=== PATIENT | female | born 1940 | race Caucasian/White ===

== ENCOUNTER → 2024-02-06 | Outpatient (CLI) | payer OTHER ==
[2024-02-08 12:32] LABS: Stool Occult Bld Immuno 1 Positive (NEGATIVE)
== END | disposition home or self-care (01) ==
LOC: LAB 09:20 → LAB SHORT 09:20
PROVIDERS: Nurse Practitioner Family
DX: D50.9 Iron deficiency anemia, unspecified (principal)
CPT/HCPCS: G0328

== ENCOUNTER 2024-08-02 08:21 | Day surgery (SDC) | payer OTHER ==
[~2024-08-02] VITALS: Ht 154.9 cm; Wt 75.1 kg
[2024-08-02] VITALS (22 sets, daily range): BP systolic 84–173; BP diastolic 33–95
[~2024-08-02 08:21] MED LIST: Benzocaine Oral Spray 0.5ML UD ONE; Lactated Ringer's 1,000 ML IV SCH
--- NOTE | 2024-08-02 08:52 | NUR ---
Ambulatory in Day SurgeryPre-Op teaching done. Pt verbalizes understanding. History, Chart, Medications and Allergies reviewed before start of procedure.Patient confirms NPO status and agrees with scheduled surgery. Patient States Post-Procedure ride home has been arranged.
[2024-08-02] MEDS ORDERED: propofoL 20 ML IV ONE (09:00)
[2024-08-02] MEDS ORDERED: Midazolam HCl 1MG / ML 2ML Vial ONE (09:01)
--- NOTE | 2024-08-02 09:11 | NUR ---
08/02/24 09[place] CONFIRMED AND REVIEWED H&P, MEDCICATIONS, ALLERGIES, MEDICAL HISTORY, RESPIRATORY HISTORY, VITAL SIGNS, 3-LEAD EKG, CONSENTS, AND PHYSICIAN ORDERS. PATIENT CONFIRMS NPO STATUS AND AGREES WITH SCHEDULED PROCEDURE. MONITOR INTACT WITH CONTINUOUS PULSE OXIMETRY, CAPNOGRAPHY, 3-LEAD EKG, INTERMITTENT BP. SUPPLEMENTAL O2 TO BE TITRATED THROUGHOUT PROCEDURE TO MAINTAIN O2 SATURATION ABOVE 90%. PATIENT DETERMINED TO BE ASA APPROPRIATE FOR PROPOFOL SEDATION PRIOR TO START OF PROCEDURE BY DR. VITAL.
--- NOTE | 2024-08-02 10:17 | NUR ---
Discharge instructions reviewed with patient. Patient verbalizes understanding. Copy given to patient to take home. Patient States Post-Procedure ride home has been arranged. Discharged via wheelchair to private car for ride home.
== END 2024-08-02 10:18 | disposition home or self-care (01) ==
LOC: ORSCMMR 08:21 → ORD 09:00 → ORSCMMR 09:00
PROVIDERS: Internal Medicine Gastroenterology
PROC: 0DB98ZX Excision of Duodenum, Via Natural or Artificial Opening Endoscopic, Diagnostic (ICD-10-PCS; principal; 2024-08-02 09:00)
PROC: 0DBM8ZX Excision of Descending Colon, Via Natural or Artificial Opening Endoscopic, Diagnostic (ICD-10-PCS; principal; 2024-08-02 09:00)
PROC: 0DB68ZX Excision of Stomach, Via Natural or Artificial Opening Endoscopic, Diagnostic (ICD-10-PCS; principal; 2024-08-02 09:00)
PROC: 0DBL8ZX Excision of Transverse Colon, Via Natural or Artificial Opening Endoscopic, Diagnostic (ICD-10-PCS; principal; 2024-08-02 09:00)
DX: D50.0 Iron deficiency anemia secondary to blood loss (chronic) (principal); K44.9 Diaphragmatic hernia without obstruction or gangrene; C18.4 Malignant neoplasm of transverse colon; D12.4 Benign neoplasm of descending colon; D12.3 Benign neoplasm of transverse colon; Z86.0101 Personal history of adenomatous and serrated colon polyps
CPT/HCPCS: 88305; 88342; A9270; J2250; J2704; J7120

== ENCOUNTER 2024-09-03 10:33 | Inpatient (IN) | payer OTHER ==
[~2024-09-03] VITALS: Ht 154.9 cm; Wt 77.1 kg
[2024-09-03 13:29] LABS: BASOPHILS ABSOLUTE AUTO 0.09 K/mm3 (0.00-0.23); BASOPHILS PERCENT AUTO 1 % (0-2); EOSINOPHILS ABSOLUTE AUTO 0.67 K/mm3 (0.00-0.68); EOSINOPHILS PERCENT AUTO 5 % (0-6); Hematocrit 30.4 % (33.0-51.0); Hemoglobin 9.4 g/dL (11.5-16.0); IMMATURE GRAN ABSOLUTE AUTO 0.07 K/mm3 (0.00-0.10); IMMATURE GRAN PERCENT AUTO 1 % (0-1); LYMPHOCYTES ABSOLUTE AUTO 2.15 K/mm3 (0.84-5.20); LYMPHOCYTES PERCENT AUTO 16 % (21-46); MONOCYTES ABSOLUTE AUTO 0.79 K/mm3 (0.16-1.47); MONOCYTES PERCENT AUTO 6 % (4-13); Mean Corpuscular HGB 25.3 pg (26.0-34.0); Mean Corpuscular HGB Conc 30.9 g/dL (31.5-36.5); Mean Corpuscular Volume 82 fL (80-100); NEUTROPHILS ABSOLUTE AUTO 9.58 K/mm3 (1.96-9.15); NEUTROPHILS PERCENT AUTO 72 % (41-73); Platelet Count 512 K/mm3 (150-400); RDW Coefficient Variation 16.7 % (11.7-14.2); RDW Standard Deviation 50.1 fL (35.1-46.3); Red Blood Cell Count 3.71 M/mm3 (3.80-5.20); White Blood Cell Count 13.35 K/mm3 (4.00-11.30)
[2024-09-04] VITALS (19 sets, daily range): BP systolic 126–151; BP diastolic 62–87
[2024-09-04] MEDS ORDERED: Lactated Ringer's 1,000 ML IV SCH (06:15)
[2024-09-04] MEDS ORDERED: MetroNIDAZOLE 500MG/NS 100 ml 100 ML IV SCH (06:15)
[2024-09-04] MEDS ORDERED: Acetaminophen 500 MG Tab PO SCH (06:15)
[2024-09-04] MEDS ORDERED: CeFAZolin Sodium 2,000 MG in NS 100 ML IV SCH (06:15)
[2024-09-04] MEDS ORDERED: Heparin Sodium,Porcine 5,000 UNIT/0.5 ML SDV SC SCH (06:20)
[2024-09-04] MEDS ORDERED: FentaNYL Citrate 50 MCG/ML 2 ML Injection ONE (07:05)
[2024-09-04] MEDS ORDERED: propofoL 20 ML IV ONE (07:05)
[2024-09-04] MEDS ORDERED: Rocuronium Bromide 10 MG/ML 5ML Injection IV ONE (07:05)
[2024-09-04] MEDS ORDERED: Lidocaine HCl 2% 20 ML MDV ONE (07:05)
[2024-09-04] MEDS ORDERED: Bupivacaine 0.5% HCl 5 MG/ML 30MLVIAL ONE (07:10)
[2024-09-04] MEDS ORDERED: Ondansetron HCl 2 MG / ML 2ML Vial ONE (07:40)
[2024-09-04] MEDS ORDERED: Dexamethasone Sod Phos 10 MG/ML 1ML VIAL ONE (07:40)
[2024-09-04] MEDS ORDERED: ePHEDrine Sulfate 50 MG/ML 1ML Injection ONE (07:44)
[2024-09-04] MEDS ORDERED: Indocyanine Green 25 MG Vial IV ONE (08:20)
[2024-09-04] MEDS ORDERED: Sugammadex Sodium 200 MG/2ML SDV (100 MG/ML) ONE (10:21)
[2024-09-04] MEDS ORDERED: Acetaminophen 325 MG TABLET PO PRN (11:00)
[2024-09-04] MEDS ORDERED: Ondansetron HCl 2 MG / ML 2ML Vial IV PRN (11:00)
[2024-09-04] MEDS ORDERED: HYDROmorphone HCl/Pf 1MG SYR IV PRN (11:00)
[2024-09-04] MEDS ORDERED: FLU VACC TS2024-25(6MOS UP)/PF 45 MCG/0.5 ML SYRINGE IM SCH (11:00)
[2024-09-04] MEDS ORDERED: OxyCODONE HCL 5 MG TAB PO PRN (11:00)
--- NOTE | 2024-09-04 11:32 | NUR ---
PT ARRIVED TO UNIT FROM PACU S/P R HEMICOLECTOMY PT DENIES PAIN OR NAUSEA AND REPORTS FEELING TIRED. 4 LAP SITES WITH WOUND GLUE LEFTMOST SITE WITH SOME SANGUINOUS DRAINAGE ONTO GOWN. GAUZE AND TEGADERM PLACED ON TOP AND GOWN CHANGED. NO ACTIVE DRAINAGE NOTED. PT ON ROOM AIR, ABLE TO TAKE DEEP BREATHS. WATER AND JELLO AT BEDSIDE. FAMILY IN ROOM. CALL LIGHT PROVIDED.
--- NOTE | 2024-09-04 17:05 | NUR ---
SHIFT SUMMARY POD 1 R JOVANY COLECTOMY PT AMBULATING, DENIES PAIN DURING SHIFT. DENIES NAUSEA. LAP SITES REMAIN UNCHANGED SINCE ARRIVAL. TOLERATING DIET, NO NAUSEA. ABLE TO VOID
[2024-09-04] MEDS ORDERED: Docusate Sodium 100 MG Cap PO SCH (21:00)
[2024-09-05 00:14] VITALS: BP 146/71
[2024-09-05 04:53] VITALS: BP 156/82
[2024-09-05 06:00] LABS: Hematocrit 29.1 % (33.0-51.0); Hemoglobin 9.1 g/dL (11.5-16.0); Mean Corpuscular HGB 25.3 pg (26.0-34.0); Mean Corpuscular HGB Conc 31.3 g/dL (31.5-36.5); Mean Corpuscular Volume 81 fL (80-100); Platelet Count 497 K/mm3 (150-400); RDW Coefficient Variation 16.5 % (11.7-14.2); RDW Standard Deviation 48.7 fL (35.1-46.3); White Blood Cell Count 15.73 K/mm3 (4.00-11.30)
[2024-09-05 06:11] LABS: Calcium, Blood 9.3 mg/dL (8.5-10.1); Magnesium, Blood 2.3 mg/dL (1.6-2.4); Potassium, Blood 4.1 mmol/L (3.5-5.5)
[2024-09-05 07:19] VITALS: BP 144/76
--- NOTE | 2024-09-05 07:24 | NUR ---
SHIFT SUMMARY NOC. PT POD 1 FOR RIGHT JOVANY-COLECTOMY. LAP SITES X4 ARE C/D/I. PT A/OX4 AND CALLS APPROPRIATELY. PT AMBULATES WELL WITH NO WEAKNESS NOTED. PT VOIDING URINE, HAD A LIQUID INCONTINENT BM WELL A 400ML EMESIS THIS AM AROUND 6AM. PT VERBALIZED FEELING BETTER POST EMESIS AND DENIED NAUSEA UNTIL THIS AM. PT MEDICATED FOR MILD PAIN WITH TYLENOL X2. CALL LIGHT IN REACH.
[2024-09-05] MEDS ORDERED: Enoxaparin 30 MG/0.3 ML SYR SC SCH (09:00)
--- NOTE | 2024-09-05 10:40 | NUR ---
Assumed care of patient, moved to room 224. Ambulated independently without difficulty. Vomited 300cc brown liquid, and incontinent of liquid green stool. Reports feeling better, denies nausea or pain at this time. Friend at bedside.
[2024-09-05 14:40] VITALS: BP 172/83
--- NOTE | 2024-09-05 17:17 | NUR ---
SHIFT SUMMARY PT AOX4, COOPERATIVE, ABLE TO MAKE NEEDS KNOWN. PT HAS BEEN IN BED MOST OF SHIFT, IND IN ROOM TO USE BATHROOM. NO COMPLAINTS OF PAIN, DID COMPLAIN OF NAUSEA AND "FEELING FUNNY". SENIOR WEB ARCHITECT INFORMED RN OF THIS AND WHEN THIS RN ASSESSED PT, PT REPORTS TO BE "FEELING GOOD". WILL CONTINUE TO ASSESS THROUGH REMAINDING OF SHIFT. BED IN LOWEST POSITION, CALL LIGHT WITHIN REACH.
[2024-09-05 19:19] VITALS: BP 157/79
--- NOTE | 2024-09-05 23:23 | NUR ---
PT TRANSPOT- PT FAMILY, ROBERT SCHULTZ WILL BE PICKING UP PT AFTER DISCHARGE. PHONE- [phone].
[2024-09-06 03:31] VITALS: BP 148/79
--- NOTE | 2024-09-06 06:01 | NUR ---
PT HAS DENIED NEED TONIGHT. REPORTS TOLERATING PO EXCEPT SOME "ERPY" WHEN QUESTIONED, STATES ERPY TO HER MEANS BELCHING AND BURPING,DENIED NAUSEA.
[2024-09-06 07:06] VITALS: BP 152/90
--- NOTE | 2024-09-06 10:40 | NUR ---
NAUSEA PT REPORTING SOME NAUSEA. MEDICATED PER ORDERS W/ZOFRAN. ENCOURAGED AMBULATION. PT SITTING ON EDGE OF BED, TAKING PEPPERMINT.
--- NOTE | 2024-09-06 13:50 | NUR ---
DR ARTIS IN TO SEE PT. PLAN TO KEEP PT ANOTHER NIGHT AND MONITOR INPUT. NOTIFIED PT'S GRANDDAUGHTER, BUG, PER PT REQUEST.
[2024-09-06 14:49] VITALS: BP 153/83
--- NOTE | 2024-09-06 14:55 | NUR ---
PT REPORTS FEELING "WEAK" VSS. PT AMBULATED IN [place] BRIEF TIME AGO. SITTING UP IN CHAIR NOW. ADVISED PT TO TRY TO TAKE A REST BREAK, PT STATED NEEDS TO MAKE A PHONE CALL. ADVISED PT TO CALL BEFORE AMBULATING SO SAFETY MAY BE INSURED.
--- NOTE | 2024-09-06 17:28 | NUR ---
SUMMARY PT HAS BEEN NAUSEATED OFF AND ON T/O SHIFT. HAD 500 ML DARK GREENISH/BROWN EMESIS THIS AFTERNOON. HAS NOT VOIDED SINCE MIDSHIFT. CONTACTED DR ARTIS AND OBTAINED ORDERS FOR FLUIDS. PT AMBULATED ONCE IN [place] THIS SHIFT, HAS AMBULATED IN ROOM, AND SLEPT OFF AND ON T/O DAY. CALL LIGHT IN REACH.
[2024-09-06] MEDS ORDERED: Lactated Ringer's 1,000 ML IV SCH (17:30)
[2024-09-06] MEDS ORDERED: Lactated Ringer's 1,000 ML IV ONE (17:30)
[2024-09-06 19:33] VITALS: BP 156/93
[2024-09-07 03:55] VITALS: BP 155/82
[2024-09-07 05:25] LABS: BASOPHILS ABSOLUTE AUTO 0.02 K/mm3 (0.00-0.23); BASOPHILS PERCENT AUTO 0 % (0-2); EOSINOPHILS ABSOLUTE AUTO 0.01 K/mm3 (0.00-0.68); EOSINOPHILS PERCENT AUTO 0 % (0-6); Hematocrit 30.1 % (33.0-51.0); Hemoglobin 9.5 g/dL (11.5-16.0); IMMATURE GRAN PERCENT AUTO 1 % (0-1); LYMPHOCYTES PERCENT AUTO 9 % (21-46); MONOCYTES ABSOLUTE AUTO 0.98 K/mm3 (0.16-1.47); MONOCYTES PERCENT AUTO 7 % (4-13); Mean Corpuscular HGB 25.2 pg (26.0-34.0); Mean Corpuscular HGB Conc 31.6 g/dL (31.5-36.5); Mean Corpuscular Volume 80 fL (80-100); Mean Platelet Volume 8.6 fL (9.1-12.4); NEUTROPHILS ABSOLUTE AUTO 11.35 K/mm3 (1.96-9.15); NEUTROPHILS PERCENT AUTO 83 % (41-73); Platelet Count 465 K/mm3 (150-400); RDW Coefficient Variation 15.7 % (11.7-14.2); Red Blood Cell Count 3.77 M/mm3 (3.80-5.20); White Blood Cell Count 13.76 K/mm3 (4.00-11.30)
[2024-09-07 05:59] LABS: Bun/Creatinine Ratio 19.4 (12.0-20.0); Creatinine, Blood 0.77 mg/dL (0.40-1.00); Magnesium, Blood 2.1 mg/dL (1.6-2.4); Potassium, Blood 3.5 mmol/L (3.5-5.5)
--- NOTE | 2024-09-07 07:38 | NUR ---
SUMMARY NO ACUTE CHANGES.
[2024-09-07 07:39] VITALS: BP 133/71
--- NOTE | 2024-09-07 11:31 | NUR ---
THIS PATIENT OFFERED TO WALK WITH PATIENT IN [place].PATIENT DECLINED.RN NOTIFIED.PATIENT EDUCATED AND ENCOURGED TO WALK.
--- NOTE | 2024-09-07 11:34 | NUR ---
THIS ENERGY ATTORNEY OFFERED TO WALK WITH PATIENT.THIS ENERGY ATTORNEY ENCOURAGED PATIENT TO WALK IN HALLS. PATIENT DECLINED.RN NOTIFIED.
[2024-09-07 15:09] VITALS: BP 144/75
--- NOTE | 2024-09-07 16:21 | NUR ---
SUMMARY PATIENT HAVING NAUSEA TODAY, ONLY TOLERATING SIPS OF WATER AND HARD CANDY. ENCOURAGED AMBULATING AND UP IN CHAIR. PATIENT SHOWERED AND LINENS CHANGED. VOIDING IND IN BR. WALKED HALLS THIS AFTERNOON. LAP SITES ARE C.D.I. MILD DISTENTION DENIES PASSING GAS. VSS. IV FLUIDS RUNNING.
[2024-09-07 19:19] VITALS: BP 183/79
[2024-09-07 20:18] VITALS: BP 162/83
[2024-09-08 04:34] VITALS: BP 158/75
--- NOTE | 2024-09-08 07:40 | NUR ---
SHIFT SUMMARY AOX4. POD 4-R JOVANY COLECTOMY. x4 LAP SITES C/D/I, NO DRAINAGE NOTED, OPEN TO AIR. ACTIVE BT. DENIES N/V. REPORTS MIN "PRESSURE/GAS PAIN" IN LLQ ABD, DENIES NEED FOR ANY MEDICATION T/O NIGHT, STATES SHE FEELS "THINGS ARE MOVING & RUMBLING". ABD MOD DISTENDED, TOLERATING CLEAR LIQUID DIET. HAS VOIDED APPROX 2L THIS SHIFT, NO BM. AMBULATED TO RE[facility]OM [facility] x, STATES SHE AMBULATED THE HALLS ALOT YESTERDAY & WAS TOO TIRED TONIGHT. CALL LIGHT IN REACH.
[2024-09-08 09:20] VITALS: BP 144/79
[2024-09-08 14:51] VITALS: BP 148/78
--- NOTE | 2024-09-08 17:24 | NUR ---
SHIFT SUMMARY POD 4 R HEMICOLECTOMY LAP SITES REMAIN CDI. PT DENIES NAUSEA, APPETITE INCREASING. AMBULATING FREQUENTLY IN HALLS. FEELS LIKE THINGS ARE MOVING. NO FLATUS. NO PAIN AT THIS TIME.
[2024-09-08 19:35] VITALS: BP 168/78
[2024-09-09 04:12] VITALS: BP 159/81
--- NOTE | 2024-09-09 05:41 | NUR ---
NOC SHIFT SUMMARY- PT HAS BEEN RESTING QUIETLY. PT REPORTS SOME PERIODS OF DISCOMFORT THAT RESOLVES ON OWN. PT HAD A EPISODE OF NAUSEA THAT WAS TX PER EMAR WITH RELIEF. PT IS TOLERATING WATER. PT REPORTS FEELING FATIGUED. PT CURRENTLY SLEEPING IN NO DISTRESS. CALL LIGHT IN REACH.
[2024-09-09 07:46] VITALS: BP 159/81
[2024-09-09 14:26] VITALS: BP 142/63
--- NOTE | 2024-09-09 16:18 | NUR ---
SHIFT SUMMARY THIS RN ASSUMED CARE AT APPROX 0715. PATIENT ALERT AND ORIENTED X4. INDEPENDENT IN ROOM. AMBULATING IN HALLWAY. VSS. SBP 140s-150s. MAP >65. DENIES CHEST PAIN, PRESSURE. ON ROOM AIR, SATs >90%. RR EVEN, UNLABORED. DIET ADVANCED TO FULL LIQUID. DENIES ABD PAIN, N/V. REPORTS SOME FLATULENCE. NO BM TODAY. CALL LIGHT IN REACH.
--- NOTE | 2024-09-09 16:26 | NUR ---
REPORT GIVEN TO ELLE RN TO ASSUME CARE AT THIS TIME
--- NOTE | 2024-09-09 18:42 | NUR ---
no acute changes since assumption of care. pt resting in bed, denies pain
[2024-09-09 19:08] VITALS: BP 139/72
--- NOTE | 2024-09-10 01:59 | NUR ---
TRANSFER OF PRIMARY NURSE. REPORT GIVEN TO FRANNY ARMENTA RN. PT NOTIFIED OF CASE MANAGER. PT DENIES QUESTIONS OR CONCERNS AT THIS TIME.
[2024-09-10 04:06] VITALS: BP 162/76
--- NOTE | 2024-09-10 06:18 | NUR ---
NOC SUMMARY- PT HAD A MEDIUM LOOSE BROWN STOOL THIS AM. PT HAD NO N/V THIS SHIFT. PT REPORTS MINOR DISCOMFORT. PT REMAINS AMBULATORY AND IS VOIDING. THIS AM PT SHOWERED AND IS RESTING COMFORTABLY. CALL LIGHT IN REACH.
[2024-09-10 07:16] VITALS: BP 142/72
--- NOTE | 2024-09-10 10:27 | NUR ---
AGREE WITH [place] ENGINEER SHIFT ASSESSMENT
[2024-09-10 13:39] VITALS: BP 158/79
--- NOTE | 2024-09-10 13:49 | NUR ---
DISCHARGE PT EDUCATED ON AND RECEIVED PRINTED DISCHARGE INSTRUCTIONS AND VERBALIZED AN UNDERSTANDING. NO NEW RX. NO IV ACCESS. PT GATHERED ALL PERSONAL BELONGINGS AND WAITING FOR FAMILY TO PICK PT UP TO TAKE HOME.
[2024-09-11] MEDS ORDERED: Enoxaparin 40 MG/0.4 ML SYR SC SCH (09:00)
== END 2024-09-10 14:18 | disposition home or self-care (01) | DRG 331 ==
LOC: MEDS 09-04 06:20 → SURS 09-04 07:30
PROVIDERS: ADMIT Surgery
PROC: 8E0W4CZ Robotic Assisted Procedure of Trunk Region, Percutaneous Endoscopic Approach (ICD-10-PCS; 2024-09-04)
PROC: 0DTF4ZZ Resection of Right Large Intestine, Percutaneous Endoscopic Approach (ICD-10-PCS; principal; 2024-09-04 07:30)
DX: C18.2 Malignant neoplasm of ascending colon (principal); D50.0 Iron deficiency anemia secondary to blood loss (chronic); N18.31 Chronic kidney disease, stage 3a; K21.9 Gastro-esophageal reflux disease without esophagitis; I12.9 Hypertensive chronic kidney disease with stage 1 through stage 4 chronic kidney disease, or unspecified chronic kidney disease; E78.2 Mixed hyperlipidemia; M10.9 Gout, unspecified; E66.3 Overweight; Z68.32 Body mass index [BMI] 32.0-32.9, adult; Z98.890 Other specified postprocedural states
CPT/HCPCS: 36415; 80048; 82378; 82947; 83735; 85025; 85027; 86850; 86900; 86901; 88309; A9270; J0690; J1100; J1644; J1650; J2405; J2704; J3010; J7120